=== PATIENT | male | born 1985 | race Caucasian/White ===

== ENCOUNTER 2017-02-13 10:08 | Emergency (ER) | payer OTHER ==
--- NOTE | 2017-02-13 10:50 | EDPHY ---
H & P Time Seen by Provider: 02/13/17 10:24 HPI/ROS: CHIEF COMPLAINT: Bilateral lower extremity radiculopathy, low back pain HISTORY OF PRESENT ILLNESS: 31-year-old male history of chronic low back pain, history of intermittent chronic bilateral lower extremity radiculopathy, followed by multiple specialists including Dr. Al Curran, [facility] and a compensation specialist in [place], complaining of low back pain and bilateral lower extremity sensation of feeling like his "legs on fire" bilaterally since 2:00 a.m.. No foot drop. No incontinence. No retention. No saddle anesthesia. He has had imaging as recent as December 2016 of his spine. This feels similar to his usual breakthrough pain. REVIEW OF SYSTEMS: A ten point review of systems was performed and is negative with the exception of the items mentioned in the HPI PAST MEDICAL & SURGICAL HISTORY: chronic back pain SOCIAL HISTORY:nonsmoker, works as a cna per diem PHYSICAL EXAM (Prior to examination, patient consented to physical exam, hands were washed and my usual and customary physical exam procedures followed) 1) GENERAL: Well-developed, well-nourished, alert and oriented. Appears to be in no acute distress. 2) HEAD: Normocephalic, atraumatic 3) HEENT: Pupils equal, round, reactive to light bilaterally. Sclera anicteric. Nasopharynx, oropharynx, clear, no lesions. 4) NECK: Full range of motion, no meningeal signs. 5) LUNGS: Clear auscultation bilaterally, no wheezes, no rhonchi, no retractions. 6) HEART: Regular rate and rhythm, no murmur, no heave, no gallop. 7) ABDOMEN: No guarding, no rebound, no focal tenderness, negative McBurney's, negative Pulido's, negative Rovsing's, negative peritoneal sign, 8) MUSCULOSKELETAL: Moving all extremities, no focal areas of tenderness, no obvious trauma. No peripheral edema or discoloration. 9) BACK: tender to palpation paraspinous lumbar muscle. No CVA tenderness, no midline vertebral tenderness, no fluctuance, no step-off, no obvious trauma, no visual or palpable abnormality. Patella, Achilles reflexes intact to bilateral strength 5/5 10) SKIN: No rash, no petechiae. 11) NEURO: Awake, alert, and oriented to person, place and time. Answers questions appropriately. There were no obvious focal neurologic abnormalities. No cerebellar dysfunction. Normal steady gait. Upper and lower extremities bilaterally with strength 5 / 5, reflexes 2+.. DIFFERENTIAL DIAGNOSIS: In no particular order, including but not limited to, fracture, sprain/strain, cauda equina, spinal infectious etiology. MEDICAL DECISION MAKING I had a lengthy discussion with this patient and his . At this time I do not identify red flag signs or symptoms and do not think that emergent MRI is indicated. He is already on a low dose of Percocet 5 mg to his last dose yesterday. I will provide him a prescription for Percocet 5 mg as well as Medrol Dosepak and lidocaine patches. I recommend he contact his spine surgeon in [place] and/or Dr. Al Curran for further follow-up. Lower index of suspicion for cauda equina, epidural abscess, epidural hematoma, lumbar myositis , diskitis, as the patient is neurologically intact in the lower extremities, has patella and Achilles reflexes intact and equal bilaterally, has no neurologic deficits, no incontinence, no retention, no midline pain, no fluctuance, afebrile, no flulike symptoms. Pain may be secondary to muscular strain, may be secondary to discogenic etiology. At this point I do not identify definitive indication for emergent MRI, however patient may necessitate this on an outpatient basis. Patient given acute back pain precautions. Patient verbalizes understanding of discharge instructions. I believe them be competent decision-makers. All questions and concerns have been addressed by me. Ample opportunity for questions have been provided . The patient understands that this diagnosis is provisional and can never be 100 % accurate. Usual and customary warnings were given concerning the clinical impression and all the patient's questions were answered. The patient was instructed to return to the emergency department should her symptoms worsen or return, or develop any new symptoms, otherwise to followup as directed in discharge instructions. Smoking Status: Former smoker Constitutional: Initial Vital Signs Temperature (C) 37 C 02/13/17 10:17 Heart Rate 95 02/13/17 10:17 Respiratory Rate 17 02/13/17 10:17 Blood Pressure 148/97 H 02/13/17 10:17 O2 Sat (%) 98 02/13/17 10:17 O2 Delivery Mode Room Air Allergies/Adverse Reactions: aspirin [From Excedrin Migraine] Allergy (Verified 02/13/17 10:14) caffeine [From Excedrin Migraine] Allergy (Verified 02/13/17 10:14) haloperidol [From Haldol] Allergy (Verified 02/13/17 10:15) tramadol Allergy (Verified 02/13/17 10:14) Home Medications: Medication Instructions Recorded Clonazepam 03/06/14 oxyCODONE/APAP 5/325 [Percocet 1 - 2 tab PO Q4H PRN #10 tab 03/06/14 5/325 (RX)] AMITRIPTYLINE HCL 10/16/15 Lidocaine 5% [Lidoderm 5% Patch 1 ea TD BID #30 patch 02/13/17 (*)] methylPREDNISolone [Medrol Dose 4 mg PO DAILY #1 ea 02/13/17 Romie] oxyCODONE/APAP 5/325 [Percocet 1 tab PO Q6 #14 tab 02/13/17 5/325] MDM/Departure - [facility] ED Course/Re-evaluation: Care of patient under supervision of secondary supervising physician Dr Willard . - Depart Disposition: Home, Routine, Self-Care Clinical Impression: Acute low back pain Qualifiers: Back pain laterality: bilateral Sciatica presence: with sciatica Sciatica laterality: bilateral sciatica Qualified Code(s): M54.42 - Lumbago with sciatica , left side; M54.41 - Lumbago with sciatica, right side; M54.41 - Lumbago with sciatica, right side Condition: Good Instructions: Chronic Back Pain (ED) Additional Instructions: Seek medical attention if you develop new or worsening pain, if you develop bladder or bowel dysfunction, numbness around your perineum, foot drop, or any other symptoms that concern you. Prescriptions: Lidocaine 5% [Lidoderm 5% Patch (*)] 1 ea TD BID #30 patch methylPREDNISolone [Medrol Dose Romie] 4 mg PO DAILY #1 ea oxyCODONE/APAP 5/325 [Percocet 5/325] 1 tab PO Q6 #14 tab Referrals: Pilar Curran MD [Medical Doctor] - 2-3 days, call for appt.
[2017-02-13 11:20] VITALS: BP 138/80; PULSE 81; RESP 16; TEMP 98.6; O2SAT 97
== END 2017-02-13 11:20 | disposition home or self-care (01) ==
DX: M54.41 Lumbago with sciatica, right side (principal); Z87.891 Personal history of nicotine dependence

== ENCOUNTER 2017-08-01 19:29 | Emergency (ER) | payer OTHER ==
--- NOTE | 2017-08-01 19:57 | EDPHY ---
H & P Stated Complaint: LEFT LEG SWELLING AND PAIN, HAD FALL/KNEE POPPED OUT LAST WEEK Time Seen by Provider: 08/01/17 19:56 HPI/ROS: CHIEF COMPLAINT: Left lower leg swelling and pain HISTORY OF PRESENT ILLNESS: This is a 31-year-old male who injured his left knee 1 week ago today. He was squatting on a roof and when he stood up he heard a pop on the side of his knee. He had the immediate onset of pain. He was evaluated at [facility] where x-rays were taken. REVIEW OF SYSTEMS: A ten point review of systems was performed and is negative with the exception of the items mentioned in the HPI. Past medical history: chronic back pain Social history: . 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 Nonsmoker. General Appearance: Alert. Vital signs reviewed. BP 121/86 at triage. Eyes: Pupils equal and round, no conjunctival injection, no discharge. Anicteric Respiratory: Lungs are clear to auscultation; no wheezes, rales, or rhonchi. Cardiovascular: Regular rate and rhythm; no murmur, rub, or gallop. Gastrointestinal: Abdomen is soft and nontender, no masses or organomegaly, bowel sounds normal. Skin: Warm and dry, no rashes on exposed skin, normal color. No warmth or erythema LLE. Back: Nontender to palpation over the thoracolumbar spine. Extremities: Tender to palpation behind left knee--no mass appreciated. Pain with flex/ext of left knee. No ligamentous instability appreciated. Left calf approximately one cm larger than right when measured 4 cm below patella. Nontender to palpation of calves. Pulses: 2+ DP bilaterally. Neurological: Alert and oriented. Moving all four extremities spontaneously, pain with AROM left knee. Sensation intact to LT over both LEs. Psychiatric: Normal affect. - Personal History Current Tetanus/Diphtheria Vaccine: Yes Tetanus Vaccine Date: 2012 - Medical/Surgical History Hx Asthma: Yes Hx Chronic Respiratory Disease: No Hx Diabetes: No Hx Cardiac Disease: No Hx Renal Disease: No Hx Cirrhosis: No Hx Alcoholism: No Hx HIV/AIDS: No Hx Splenectomy or Spleen Trauma: No Other PMH: right arm ortho repair, right lower leg injury /HERNIATED DISC/SEES NEUROLOGIST/PAIN DOC - Social History Smoking Status: Former smoker Constitutional: Initial Vital Signs Heart Rate 100 08/01/17 19:46 Respiratory Rate 20 08/01/17 19:46 Blood Pressure 121/86 H 08/01/17 19:46 O2 Sat (%) 98 08/01/17 19:46 O2 Delivery Mode Room Air Allergies/Adverse Reactions: aspirin [From Excedrin Migraine] Allergy (Verified 08/01/17 19:44) caffeine [From Excedrin Migraine] Allergy (Verified 08/01/17 19:44) haloperidol [From Haldol] Allergy (Verified 08/01/17 19:44) tramadol Allergy (Verified 08/01/17 19:44) Home Medications: Medication Instructions Recorded Clonazepam 03/06/14 AMITRIPTYLINE HCL 10/16/15 Lidocaine 5% [Lidoderm 5% Patch 1 ea TD BID #30 patch 02/13/17 (*)] Baclofen 08/01/17 Hydroxyzine HCl 08/01/17 Medical Decision Making - Diagnostics Imaging: Discussed imaging studies w/ call or contact centre team leader Radiologist ED Course/Re-evaluation: US LLE negative for DVT. Farmer's cyst not identified. He was xrayed elsewhere at time of injury and no fracture or dislocation noted-- I do not feel that another plain film is needed at this time and I do not suspect fracture or dislocation. Suspect knee sprain secondary to injury one week ago. He has a leg immobilizer and is advised to continue with this and with other supportive care. He has an appointment with a workman's compensation provider tomorrow. Danger signs that should prompt re-evaluation were reviewed. Departure - Departure Disposition: Home, Routine, Self-Care Clinical Impression: Left knee sprain Qualifiers: Encounter type: initial encounter Involved ligament of knee: unspecified ligament Qualified Code(s): S83.92XA - Sprain of unspecified site of left knee, initial encounter Condition: Good Instructions: Knee Sprain (ED) Additional Instructions: Continue to wear knee immobilizer. Follow-up with workman's compensation tomorrow as planned. You do not have a DVT, based upon pablo's ultrasound. Referrals: Desmond Olsen MD [Primary Care Provider] - As per Instructions
[2017-08-01 21:28] VITALS: BP 111/70
== END 2017-08-01 21:28 | disposition home or self-care (01) ==
DX: S83.92XA Sprain of unspecified site of left knee, initial encounter (principal); J45.909 Unspecified asthma, uncomplicated; Z87.891 Personal history of nicotine dependence; X58.XXXA Exposure to other specified factors, initial encounter